=== PATIENT | female | born 1960 | race Caucasian/White ===

== ENCOUNTER → 2019-04-04 | Outpatient (CLI) | payer SELFPAY ==
--- NOTE | 2019-04-04 21:33 | REP ---
Right hand series: Four views. History: Contusion. Injury in a fall. Findings: Four views of the right hand demonstrate mild diffuse osteopenia. There is advanced osteoarthritis at the first carpometacarpal articulation. There is fracture subluxation at the PIP joint of the small finger with ulnar subluxation. There is associated swelling. There is also soft tissue swelling at the PIP joint of the ring finger. No other fracture is seen. Impression: Fracture subluxation with ulnar displacement at the PIP joint of the small finger. Advanced osteoarthritis at the first MCP joint. Electronically Signed by Robert Stratton MD 04/05/2019 10:40 A
--- NOTE | 2019-04-04 21:34 | REP ---
Right wrist series: Four views. History: Contusion. Findings: Four views of the right wrist demonstrate advanced osteoarthritis at the first carpometacarpal articulation. There is mild spurring at the distal radial ulnar joint. No fracture is seen. Impression: No wrist fracture noted. Electronically Signed by Robert Stratton MD 04/05/2019 10:40 A
== END ==
LOC: M WUC 18:31
PROVIDERS: ATTEND Physician Assistant
DX: S52.601A Unspecified fracture of lower end of right ulna, initial encounter for closed fracture (principal); X58.XXXA Exposure to other specified factors, initial encounter; Y92.89 Other specified places as the place of occurrence of the external cause